=== PATIENT | male | born 1950 | race Caucasian/White ===

== ENCOUNTER 2018-03-20 19:34 | Observation (INO) | payer OTHER, MEDICARE ==
[~2018-03-20] VITALS: Ht 175.3 cm; Wt 90.3 kg
[~2018-03-20 19:34] MED LIST: ATORVASTATIN CA40 MG PO; COREG6.25 MG PO; GLUCOTROL5 MG PO; METFORMIN HCL500 MG PO; NITROGLYCERIN0.4 MG SUBLING; PLAVIX 75 MG TA75 M1 PO; PRILOSEC 20 MG20 MG PO; TYLENOL325 MG PO
[2018-03-20 19:37] VITALS: BP 146/77
[2018-03-20] MEDS ORDERED: ESOMEPRAZOLE MA20 MG PO (19:44)
[2018-03-20 19:53] LABS: ABSOLUTE BASOPHILS 0.1 thou/uL (0.0-0.2); ABSOLUTE EOSINOPHILS 0.4 thou/uL (0.0-0.7); ABSOLUTE LYMPHOCYTES 1.8 thou/uL (0.8-5.3); ABSOLUTE MONOCYTES 0.4 thou/uL (0.0-1.2); ABSOLUTE NEUTROPHILS 4.9 thou/uL (1.6-8.1); BASOPHILS 1.2 %; EOSINOPHILS 5.5 %; HEMATOCRIT 40.5 % (42.0-52.0); HEMOGLOBIN 13.8 gm/dL (14.0-18.0); LYMPHOCYTES 23.7 %; MCH 30.9 pg (26.0-34.0); MCHC 34.1 g/dL (28.0-37.0); MCV 90.7 fL (80.0-100.0); MONOCYTES 5.8 %; MPV 8.5 fl. (7.2-11.1); NUCLEATED RBCS 0 /100WBC; PLATELET COUNT* 197 thou/uL (150-400); POLYS 63.8 %; RBC 4.47 mil/uL (4.50-6.00); RDW-CV 13.6 % (10.5-14.5); WBC 7.7 thou/uL (4.0-11.0)
[2018-03-20 20:07] LABS: PROTIME 10.2 Seconds (9.20-11.50)
[2018-03-20 20:10] LABS: CALCIUM 8.3 mg/dL (8.5-10.1); CREATININE 1.1 mg/dL (0.6-1.3); POTASSIUM 3.8 mmol/L (3.5-5.1)
[2018-03-20 20:20] LABS: ALBUMIN 4.1 g/dL (3.4-5.0); TOTAL BILIRUBIN 0.4 mg/dL (<0.1-1.0)
[2018-03-20 22:17] VITALS: BP 105/57
[2018-03-20 22:25] VITALS: BP 118/60
[2018-03-20] MEDS ORDERED: ASPIR 8181 MG PO (23:10)
[2018-03-21 04:00] VITALS: BP 85/52
[2018-03-21 04:36] VITALS: BP 105/59
[2018-03-21 08:00] VITALS: BP 99/58
[2018-03-21 08:25] LABS: URINE BILIRUBIN NEGATIVE (Negative); URINE BLOOD NEGATIVE (Negative); URINE CLARITY CLEAR; URINE COLOR YELLOW; URINE GLUCOSE-RANDOM NEGATIVE (Negative); URINE KETONES NEGATIVE (Negative); URINE LEUKOCYTES-REFLEX NEGATIVE (Negative); URINE NITRITE-REFLEX NEGATIVE (Negative); URINE PROTEIN NEGATIVE (Negative); URINE UROBILINOGEN 0.2 E.U./dl (0.2-1.0)
[2018-03-21 10:44] VITALS: BP 99/58
--- NOTE | 2018-03-21 11:09 | EKG ---
[place] [address] ELECTROCARDIOGRAM REPORT Name: DONNELL HURTADO Room: [address] ADM IN .R.#: [id number] Admission: 03/20/18 Attend Phys: Nazia Belle MD Discharge: Date of : 46 Report #: [id number] THIS REPORT FOR: //name// [facility] ED Test Date: 2018-03-20 Test Time: 19:39:17 Pat Name: DONNELL HURTADO Department: Room: [facility] Gender: M Exotic Dancer: [place] : 1950 Requested By: Liana Islas Order Number: [id number] MD: oJs Vernon Measurements Intervals [place] Rate: 79 P: 37 TN: 196 QRS: 50 QRSD: 132 T: 44 QT: 392 QTc: 450 Interpretive Statements Sinus rhythm Right bundle branch block ST elevation, consider inferior injury Compared to ECG 07/12/2017 01:09:49 Myocardial infarct finding now present Ventricular premature complex(es) no longer present ST (T wave) deviation still present Electronically Signed On 03-21-2018 11:08:48 CDT by Jos Vernon [email or web address] <ELECTRONICALLY SIGNED> By: Jos Vernon MD, FAC 03/21/18 1108 38 38 Jos Vernon MD, FAC /EPI
[2018-03-21 11:37] VITALS: BP 105/50
--- NOTE | 2018-03-29 12:53 | CON ---
[address] [address] CONSULTATION Name: DONNELL HURTADO Room: [address] John Shepard#: [id number] Admission: 03/20/18 Attend Phys: Nazia Belle MD Discharge: 03/21/18 Date of : 46 Report #: [id number] THIS REPORT FOR: //name// CC: Alex Belle DATE OF SERVICE: 03/21/2018 PRIMARY CARE DOCTOR: Alex Arnold MD [facility]. CHIEF COMPLAINT: Left arm pain. HISTORY OF PRESENT ILLNESS: The patient is a 68-year-old man with a history of coronary artery disease and prior PCI, who presented to the emergency room with left arm ache, which radiated down to his fingertips associated with numbness. He really did not have much in the way of chest discomfort. His symptoms were unrelieved with nitroglycerin at home and then he was given a nitropatch here, became hypotensive and dizzy and lightheaded and again still had really significant relief of his arm pain. At this point this morning, he is asymptomatic for chest pain or arm pain or numbness. He has been doing a lot of upper extremity vigorous activity. He works with wood working as a hobby and had been using his upper extremities more frequently over the last week. He has no exertional symptoms with walking. He denies diaphoresis, orthopnea, PND or palpitations. He presents with a sinus rhythm with right bundle branch block. He was admitted for observation and his cardiac troponin levels were all normal. PAST MEDICAL HISTORY: He has a history of prior PCI in 06/2017 to the diagonal and right coronary artery and then he underwent a repeat cardiac catheterization later and had patency of his stents. He has still been on Plavix. He has GERD, hyperlipidemia. PAST SURGICAL HISTORY: PCI and wrist surgery. SOCIAL HISTORY: He used to smoke. FAMILY HISTORY: Positive for heart disease. HOME MEDICATIONS: Aspirin, Coreg 6.25 mg p.o. b.i.d., cholecalciferol, Plavix 75 mg daily, Nexium 20 mg daily, Glucotrol 10 mg daily, metformin 500 mg 2 p.o. b.i.d. and [place]yl[place] [id number] CONSULTATION Name: DONNELL HURTADO Room: [address] LidiaBrandon#: [id number] Admission: 03/20/18 Attend Phys: Nazia Belle MD Discharge: 03/21/18 Date of : 46 Report #: [id number] REVIEW OF SYSTEMS: GENERAL: No fevers or chills. PULMONARY: No wheezing or cough. CARDIOVASCULAR: Positive arm pain. No chest pain. No edema, no palpitations. NEUROLOGIC: No syncope or seizures. HEMATOLOGIC: No anemia. RENAL: No history of kidney failure. SKIN: No rashes. PHYSICAL EXAMINATION: VITAL SIGNS: Blood pressure is 99/58, pulse 75, respiratory rate is 18. GENERAL: This is a pleasant elderly male, alert, oriented, in no apparent distress. NECK: Supple. No jugular venous distention. CARDIOVASCULAR: Regular. I cannot hear a murmur. LUNGS: Clear to auscultation. ABDOMEN: Soft, nontender. EXTREMITIES: No peripheral edema. LABORATORY DATA: Electrocardiogram demonstrates a sinus rhythm with complete right bundle branch block. Troponin I is 0.06 x 3 sets. Hemoglobin is 13.8, white blood count 7.7, platelet count is 197,000. INR is 1.0. Chest x-ray shows no acute process. IMPRESSION: 1. Arm pain. This seems more musculoskeletal given the fact that he had been working with his upper extremities more vigorously in the last week. The numbness and wrist pain seem more likely to be associated with this type of abnormality. 2. Coronary artery disease. His symptoms could have been construed as angina. He is ruled out for an acute UT given his recatheterization within the last 7 months. I think that he can be evaluated as an outpatient by his usual automatic machines supervisor, Dr. Arnold to see if any further testing is necessary yet, he is asymptomatic morning. His catheterization was in 07/2017 and showed no in-stent restenosis and only moderate disease elsewhere in the target vessels. 3. Hypertension, this is stable. 4. Hyperlipidemia, we will continue with aggressive medical therapy. We will plan on discharging him with Plavix and p.r.n. NSAIDs over the next 5-7 days, and then he will follow up with Dr. Arnold within a month. <ELECTRONICALLY SIGNED> By: Jos Vernon MD, [facility] 03/29/18 1253 [id number] [id number] Vernon MD, FACC /nt
== END 2018-03-21 13:04 | disposition home or self-care (01) ==
LOC: M.ERS 19:34 → M.2W 21:12 → M.TBA-ER 21:12 → M.2W 21:12
PROVIDERS: Emergency Medicine; ADMIT Internal Medicine
DX: R07.9 Chest pain, unspecified (principal); I25.10 Atherosclerotic heart disease of native coronary artery without angina pectoris; I10 Essential (primary) hypertension; E11.9 Type 2 diabetes mellitus without complications; K21.9 Gastro-esophageal reflux disease without esophagitis; E78.5 Hyperlipidemia, unspecified; I21.4 Non-ST elevation (NSTEMI) myocardial infarction; Z95.5 Presence of coronary angioplasty implant and graft; Z72.89 Other problems related to lifestyle; Z98.890 Other specified postprocedural states

== ENCOUNTER 2019-04-23 20:37 | Inpatient (IN) | payer OTHER, MEDICARE ==
[~2019-04-23] VITALS: Ht 175.3 cm; Wt 92.1 kg
[~2019-04-23 20:37] MED LIST changes: +ASPIR 8181 MG PO; +ESOMEPRAZOLE MA20 MG PO
[2019-04-23 20:54] VITALS: BP 148/88
[2019-04-23 21:16] LABS: ABSOLUTE EOSINOPHILS 0.4 thou/uL (0.0-0.7); ABSOLUTE LYMPHOCYTES 1.8 thou/uL (0.8-5.3); ABSOLUTE MONOCYTES 0.5 thou/uL (0.0-1.2); ABSOLUTE NEUTROPHILS 5.1 thou/uL (1.6-8.1); BASOPHILS 0.5 %; EOSINOPHILS 4.5 %; HEMATOCRIT 41.3 % (42.0-52.0); HEMOGLOBIN 14.2 gm/dL (14.0-18.0); LYMPHOCYTES 22.9 %; MCH 30.1 pg (26.0-34.0); MCHC 34.4 g/dL (28.0-37.0); MCV 87.4 fL (80.0-100.0); MONOCYTES 6.8 %; MPV 8.8 fl. (7.2-11.1); NUCLEATED RBCS 0 /100WBC; PLATELET COUNT* 185 thou/uL (150-400); POLYS 65.3 %; RBC 4.72 mil/uL (4.50-6.00); RDW-CV 14.5 % (10.5-14.5); WBC 7.8 thou/uL (4.0-11.0)
[2019-04-23 21:22] LABS: CALCIUM 8.9 mg/dL (8.5-10.1); CREATININE 1.2 mg/dL (0.6-1.3); POTASSIUM 3.7 mmol/L (3.5-5.1)
[2019-04-23 21:27] LABS: ALBUMIN 3.9 g/dL (3.4-5.0); TOTAL BILIRUBIN 0.5 mg/dL (<0.1-1.0); TOTAL PROTEIN 7.3 g/dL (6.4-8.2)
[2019-04-23 22:47] LABS: URINE BILIRUBIN NEGATIVE (Negative); URINE BLOOD 2+ (Negative); URINE CLARITY CLEAR; URINE COLOR YELLOW; URINE GLUCOSE-RANDOM 2+ (Negative); URINE KETONES TRACE (Negative); URINE LEUKOCYTES-REFLEX NEGATIVE (Negative); URINE NITRITE-REFLEX NEGATIVE (Negative); URINE PROTEIN NEGATIVE (Negative); URINE SPECIFIC GRAVITY >= 1.030 (1.005-1.030); URINE UROBILINOGEN 0.2 E.U./dl (0.2-1.0)
[2019-04-23 22:50] VITALS: BP 139/76
[2019-04-23 23:00] VITALS: BP 154/89
--- NOTE | 2019-04-23 23:00 | NUR ---
PT ADMITTED TO FLOOR ACCOMPANIED BY ER STAFF WITH BELONGINGS. AOX4. UP WITH STEADY GAIT. PT STATES LOW ABD PAIN 1/10 AT PRESENT AFTER MEDS IN ER. STATES HE IS HUNGRY, SNACK TO BE GIVEN BEFORE NPO AT MIDNIGHT. ASSESSMENT PERFORMED AND HISTORY OBTAINED, SEE ADMIT NOTES. RAC IVF PLACED ON PUMP FOR INFUSION. PT INSTRUCTED NURSING STAFF WILL STRAIN URINE, VERBALIZES UNDERSTANDING. WILL CONTINUE TO MONITOR AND PROVIDE CARES NEEDED.
[2019-04-23 23:11] LABS: CASTS None Seen /LPF (None Seen); SQUAMOUS 4-10 Moderate /LPF (0-3)
[2019-04-23 23:12] LABS: BACTERIA-REFLEX 1-9 Few /HPF (None Seen); CRYSTALS None Seen /LPF (None Seen); URINE WBC-REFLEX 0-5 Rare /HPF (0-5)
--- NOTE | 2019-04-24 05:28 | NUR ---
PT SLEPT WELL AFTER SETTLING IN FROM ADMISSION. UP AD RC TO BATHROOM TO VOID YELLOW URINE, STRAINED WITH NO STONES FOUND. IV PAIN AND NAUSEA MED GIVEN ONCE THIS SHIFT FOR MILD ABD PAIN RADIATING TO L FLANK. NO LABS THIS MORNING. HAS BEEN NPO SINCE MIDNIGHT ORDERED. UROLOGY TO SEE PT TODAY. ABLE TO USE CALL LITE AND MAKE NEEDS KNOWN. CALL LITE IN EASY REACH.
[2019-04-24 07:49] VITALS: BP 105/59
--- NOTE | 2019-04-24 13:04 | NUR ---
This RN instructor agrees with the assessment of SN Yimi for 04/24/19 at 1053.
[2019-04-24 14:14] VITALS: BP 105/59
[2019-04-24 14:50] VITALS: BP 123/68
--- NOTE | 2019-04-24 15:53 | NUR ---
ASSESSMENT COMPLETE. PT ALERT AND ORIENTED X4. PT DENIES NEED FOR PAIN MEDICATION SINCE SHIFT CHANGE THIS AM. PT HAS IV FLUIDS INFUSING. PT IS UP AD RC. STRAIN ALL URINE. PT LEFT FOR PROCEDURE AT 1435, CONSENTS SIGNED AND PRE-OP CHECKLIST COMPLETED. SEE ASSESSMENT AND VITALS FOR OTHER DETAILS. CALL LIGHT WITHIN REACH, WILL CONTINUE PLAN OF CARE
--- NOTE | 2019-04-24 17:25 | EKG ---
[place] [address] ELECTROCARDIOGRAM REPORT Name: GENESISDONNELL Ricketts Room: [address] ADM IN ..#: [id number] Admission: 04/23/19 Attend Phys: Fernando Sykes MD Discharge: Date of : 46 Report #: [id number] THIS REPORT FOR: //name// [facility] Test Date: 2019-04-24 Test Time: 10:23:58 Pat Name: DONNELL HURTADO Department: Room: [address] Gender: M Life Skills Trainer: : 1950 Requested By: Héctor Bryant Order Number: [id number] Oralia MD: Cory Robb Measurements Intervals [place] Rate: 79 P: 48 VT: 181 QRS: 63 QRSD: 131 T: 22 QT: 388 QTc: 445 Interpretive Statements Sinus rhythm Right bundle branch block Compared to ECG 03/20/2018 19:39:17 Myocardial infarct finding no longer present ST (T wave) deviation still present Electronically Signed On 04-24-2019 17:25:14 CDT by Cory Robb [email or web address] <ELECTRONICALLY SIGNED> By: Cory Robb MD, [facility] 04/24/19 1725 1023 1023 Cory Robb MD, [facility] /EPI
[2019-04-24 18:35] VITALS: BP 141/69
--- NOTE | 2019-04-24 18:36 | NUR ---
PT BACK FROM SURGERY AT 1800. PT IS ALERT AND ORIENTED X4. DENIES PAIN. SMALL AMOUNT OF BLOOD DRAINING FROM URETHRA. PT ABLE TO URINATE. PT TOLERATING DIET. PT IS ON ROOM AIR AND VSS. CALL LIGHT WITHIN REACH, WILL CONTINUE PLAN OF CARE
[2019-04-24 20:36] VITALS: BP 125/69
[2019-04-25 00:14] VITALS: BP 128/68
[2019-04-25 04:27] VITALS: BP 122/68
--- NOTE | 2019-04-25 05:43 | NUR ---
PATIENT WAS ABLE TO SLEEP THOUGH THE SHIFT. HE REPORTED NO PAIN OR NAUSEA AND IS TOLERATING A CLEAR LIQUIDS WELL. WAS PUT ON 3L OXYGEN AND IS SAT 97% WITH 3L. NO WORSENING OF CONDITIONS WILL CONTINUE TO MONITOR.
[2019-04-25 08:35] VITALS: BP 120/70
[2019-04-25] MEDS ORDERED: FLOMAX0.4 MG PO (10:59)
[2019-04-25] MEDS ORDERED: HYDROCODON-ACE1 EAC7 PO (10:59)
[2019-04-25] MEDS ORDERED: OXYBUTYNIN 5 MG5 M2 PO (10:59)
[2019-04-25] MEDS ORDERED: CIPRO500 MG PO (11:03)
[2019-04-25] MEDS ORDERED: PHENAZOPYRIDIN200 M2 PO (11:03)
--- NOTE | 2019-04-25 12:48 | OP ---
[address] [address] OPERATIVE REPORT Name: DONNELL HURTADO Room: [address] IN ..#: [id number] Admission: 04/23/19 Attend Phys: Fernando Sykes MD Discharge: Date of : 46 Report #: [id number] THIS REPORT FOR: //name// CC: Alex Sykes DATE OF SERVICE: 04/24/2019 PREOPERATIVE DIAGNOSIS: Left nephrolithiasis. POSTOPERATIVE DIAGNOSIS: Left nephrolithiasis. PROCEDURE PERFORMED: 1. Cystoscopy. 2. Left retrograde pyelogram. 3. Left ureteroscopy with laser lithotripsy and stone basket extraction. 4. Left ureteral stent placement. STAFF: Dr. Héctor Bryant. COMPLICATIONS: None. DRAINS: One. A 6 x 26 left ureteral stent. SPECIMENS: Left ureteral stone. ESTIMATED BLOOD LOSS: 0 mL. INDICATIONS FOR PROCEDURE: The patient is a 69-year-old gentleman who presented to the [facility] ER with left-sided flank pain. A CT without contrast was performed, which demonstrated a 9 mm left UPJ stone with proximal hydronephrosis. After thorough discussion, the patient was willing to proceed with ureteroscopy. DESCRIPTION OF PROCEDURE: On 04/24/2019, after consent was obtained, the patient was taken to the operating room and placed in supine position. He was then placed under general anesthesia. He received preoperative IV Cipro for antibiotic coverage. He was then placed in dorsal lithotomy and his genitals were prepped and draped in normal sterile fashion. Next, we began the procedure by inserting the 22.5-Malaysian rigid cystoscope transurethrally without difficulty. Once in the bladder, identified the left ureteral orifice. This was cannulated with a sensor wire, which was passed in the upper pole under fluoroscopic guidance. I then withdrew the cystoscope and inserted a dual lumen catheter over the sensor wire. Retrograde pyelogram was performed, which demonstrated a stone at the level of the UPJ. I then withdrew the dual lumen catheter. I selected an 11-13-45 cm access sheath [place] [address] OPERATIVE REPORT Name: DONNELL HURTADO Room: [address] IN [facility].#: [id number] Admission: 04/23/19 Attend Phys: Fernando Sykes MD Discharge: Date of : 46 Report #: [id number] level of the proximal ureter without resistance. A flexible ureteroscope was then inserted. At this point, the stone had floated proximally into the upper pole. I used a 272 micron laser fiber to break this up into multiple smaller fragments. A 1.9 zero-tip basket was then utilized to grasp each of the stone fragments and pulled these out of the access sheath without difficulty. Following this, there was no evidence of any further stone burden. I passed the sensor wire into the upper pole through the ureteroscope and the access sheath visualizing the entire ureter, which was free of any injury and/or stone burden. At this point, I backloaded the cystoscope over my sensor wire. I selected a 6 x 26 stent, which was passed up the upper pole under fluoroscopic guidance, had a good coil in the urinary bladder under direct visual guidance. The patient's bladder was emptied was awakened from anesthesia. <ELECTRONICALLY SIGNED> By: Héctor Bryant MD 04/25/19 1248 1627 [id number] Bryant MD /nt
[2019-04-25 16:01] VITALS: BP 120/70
--- NOTE | 2019-04-25 17:59 | NUR ---
1700 PATIENT A&OX 4. NO SIGNS OF DISTRESS OBSERVED. ALL SAFETY MEASURES MAINTAINED. PATIENT DENIED FURTHER NEEDS. IV REMOVED. PATIENT DECLINED 1700 MEDICATIONS AND INSULIN DUE TO PLANS TO EAT DINNER AT HOME. PATIENT AMBULATED WITH TO [facility].
== END 2019-04-25 18:51 | disposition home or self-care (01) | DRG 661 ==
LOC: M.ERS 20:37 → M.TBA-ER 22:29 → M.ORTHSURG 22:29
PROVIDERS: Emergency Medicine; ADMIT Family Medicine
PROC: 0TC78ZZ Extirpation of Matter from Left Ureter, Via Natural or Artificial Opening Endoscopic (ICD-10-PCS; principal; 2019-04-24)
PROC: 0T778DZ Dilation of Left Ureter with Intraluminal Device, Via Natural or Artificial Opening Endoscopic (ICD-10-PCS; principal; 2019-04-24)
PROC: BT1F1ZZ Fluoroscopy of Left Kidney, Ureter and Bladder using Low Osmolar Contrast (ICD-10-PCS; principal; 2019-04-24)
DX: N13.2 Hydronephrosis with renal and ureteral calculous obstruction (principal); E11.9 Type 2 diabetes mellitus without complications; I25.10 Atherosclerotic heart disease of native coronary artery without angina pectoris; Z79.82 Long term (current) use of aspirin; Z79.899 Other long term (current) drug therapy

== ENCOUNTER → 2019-08-27 | Outpatient (CLI) | payer BC, MEDICARE ==
[~2019-08-27] MED LIST changes: +CIPRO500 MG PO; +FLOMAX0.4 MG PO; +HYDROCODON-ACE1 EAC7 PO; +OXYBUTYNIN 5 MG5 M2 PO; +PHENAZOPYRIDIN200 M2 PO
--- NOTE | 2019-08-27 16:23 | EXE ---
[place] [address] STRESS ECHOCARDIOGRAM Name: DONNELL HURTADO Room: [facility]#: [id number] Admission: 08/27/19 Attend Phys: Alex Arnold MD Discharge: Date of : 46 Date of Service: 08/27/19 1622 Report #: [id number] THIS REPORT FOR: //name// APPROVED REPORT Study performed: 08/27/2019 15:13:06 Exam: Stress Echocardiogram Indication: CAD Patient Location: Out-Patient Stress Nurse: Zenobia Moody RN Supervising Physician: Alex Arnold MD Ht: 5 ft 9 in HR: 83 bpm BP: 138/81 mmHg Medical History Medical History: CAD , PA, PCI Cardiac Risk Factors: Hyperlipidemia, HTN, DM, Tobacco History (Former) Procedure The patient underwent an Exercise Stress Test using the Garfield Protocol. Blood pressure, heart rate, and EKG were monitored. An Echocardiogram was performed by central sterile technician in four stages in quad fashion. At peak stress, four selected images were obtained and placed side by side with resting images for comparison. Stress Test Details Stress Test: Exercise stress testing was performed using a Garfield protocol. HR Resting HR: 83 bpm Max Heart Rate (APMHR): 149 bpm Max HR Achieved: 145 bpm Target HR (85% APMHR): 126 bpm % of APMHR: 97 Recovery HR: 97 bpm HR response to stress: Normal HR response to stress BP Resting BP: 138/81 mmHg Max BP: 190/102 mmHg Recovery BP: 163/92 mmHg BP response to stress: Normal blood pressure response [place] [address] STRESS ECHOCARDIOGRAM Name: DONNELL HURTADO Room: [facility]#: [id number] Admission: 08/27/19 Attend Phys: Alex Arnold MD Discharge: Date of : 46 Date of Service: 08/27/19 1622 Report #: [id number] Resting ECG: Sinus Rhythm, RBBB Stress ECG: Sinus Rhythm, RBBB ST Change: Normal Maximum ST Deviation: 0 mm Arrhythmia: None Recovery ECG: Sinus Rhythm, RBBB Recovery ST Change: Normal Recovery ST Deviation: 0 mm Recovery Arrhythmia: None Clinical Reason for Termination: Completed protocol Stress Symptoms: Chest pressue/tightness Exercise duration: 5 min 20 sec Highest Stage Achieved: Stage 3: 3.4 mph at 14% grade. Exercise capacity: 7.05 METs Pre-Stress Echo The resting Echocardiogram showed normal left ventricular contractility with an estimated Ejection Fraction of about 60-65%. Post-Stress Echo The stress Echocardiogram showed normal left ventricular contractility with an estimated Ejection Fraction of about >70%. Compared to rest, there were no stress-induced wall motion abnormalities. Conclusion Clinical Response: Equivocal Exercise Capacity: Below Average Stress ECG Response: Non-ischemic Stress Echo Images: Non-ischemic low risk stress echo for predicting future cardiac events Other Information Study Quality: Good <Conclusion> low risk stress echo for predicting future cardiac events <ELECTRONICALLY SIGNED> By: Alex Arnold MD, [facility] 08/27/19 162 21 21 Alex Arnold MD, FACC /INF
== END ==
LOC: M.CRD 08-20 15:00
DX: I25.118 Atherosclerotic heart disease of native coronary artery with other forms of angina pectoris (principal); I10 Essential (primary) hypertension; E78.5 Hyperlipidemia, unspecified; E11.9 Type 2 diabetes mellitus without complications; I25.2 Old myocardial infarction; Z87.891 Personal history of nicotine dependence

== ENCOUNTER → 2020-02-14 | Outpatient (CLI) | payer BC, MEDICARE | END | disposition home or self-care (01) | LOC: M.MRI 11:20 | PROVIDERS: ATTEND Internal Medicine | DX: M19.011 Primary osteoarthritis, right shoulder (principal); M75.111 Incomplete rotator cuff tear or rupture of right shoulder, not specified as traumatic; M77.9 Enthesopathy, unspecified ==

== ENCOUNTER 2020-07-23 14:36 | Inpatient (IN) | payer MEDICARE ==
[~2020-07-23] VITALS: Ht 175.3 cm; Wt 89.8 kg
[2020-07-23] VITALS (21 sets, daily range): BP systolic 103–183; BP diastolic 59–139
[2020-07-23 14:55] LABS: ABSOLUTE BASOPHILS 0.1 thou/uL (0.0-0.2); ABSOLUTE EOSINOPHILS 0.3 thou/uL (0.0-0.7); ABSOLUTE LYMPHOCYTES 2.6 thou/uL (0.8-5.3); ABSOLUTE MONOCYTES 0.5 thou/uL (0.0-1.2); ABSOLUTE NEUTROPHILS 5.5 thou/uL (1.6-8.1); BASOPHILS 0.9 %; EOSINOPHILS 3.5 %; HEMATOCRIT 45.2 % (42.0-52.0); HEMOGLOBIN 15.4 gm/dL (14.0-18.0); LYMPHOCYTES 28.6 %; MCH 30.6 pg (26.0-34.0); MCV 90.1 fL (80.0-100.0); MONOCYTES 5.3 %; MPV 8.4 fl. (7.2-11.1); NUCLEATED RBCS 0 /100WBC; PLATELET COUNT* 174 thou/uL (150-400); POLYS 61.7 %; RBC 5.02 mil/uL (4.50-6.00); RDW-CV 13.9 % (10.5-14.5)
[2020-07-23 15:04] LABS: ANION GAP 9 mmol/L (7-16); BUN 16 mg/dL (7-18); CALCIUM 9.6 mg/dL (8.5-10.1); CHLORIDE 99 mmol/L (98-107); CO2 31 mmol/L (21-32); CREATININE 1.2 mg/dL (0.6-1.3); GLUCOSE 217 mg/dL (70-99); POTASSIUM 3.9 mmol/L (3.5-5.1); SODIUM 139 mmol/L (136-145)
[2020-07-23 15:08] LABS: ALBUMIN 4.1 g/dL (3.4-5.0); ALKALINE PHOSPHATASE 51 U/L (46-116); APTT 24.7 Seconds (25.0-31.3); CHOLESTEROL 151 mg/dL (<200); HDL CHOLESTEROL 53 mg/dL (>40); INR 1.1; LDL CHOLESTEROL 67 mg/dL (<100); MAGNESIUM 1.8 mg/dL (1.8-2.4); PROTIME 11.2 Seconds (9.20-11.50); SGOT 26 U/L (15-37); SGPT 35 U/L (30-65); TC:HDL 2.8 Ratio (Not establshd); TOTAL BILIRUBIN 0.7 mg/dL (<0.1-1.0); TOTAL PROTEIN 7.6 g/dL (6.4-8.2); TRIGLYCERIDE 157 mg/dL (<150); VLDL 31 mg/dL (<40)
[2020-07-23 15:11] LABS: SERUM ASSESSMENT Clear
--- NOTE | 2020-07-23 18:27 | EKG ---
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: MARBIN : 1950 Requested By: Andrew Cespedes Order Number: [id number] Reading MD: Jcarlos Andrade Measurements Intervals [place] Rate: 72 P: 39 MN: 180 QRS: 81 QRSD: 137 T: 32 QT: 417 QTc: 457 Interpretive Statements Sinus rhythm Right bundle branch block Inferior infarct, acute ST elevation, consider anterolateral injury Compared to ECG 07/23/2020 14:42:55 Left posterior fascicular block no longer present Myocardial infarct finding still present ST (T wave) deviation still present Electronically Signed On 07-23-2020 18:27:42 COORDINATOR SKILL TRAINING PROGRAM by Jcarlos Andrade [email or web address] <ELECTRONICALLY SIGNED> By: Jessenia Andrade MD, FACC 07/23/20 1827 56 56 Jessenia Andrade MD, [facility] /EPI
--- NOTE | 2020-07-23 18:27 | EKG ---
[place] [address] ELECTROCARDIOGRAM REPORT Name: GENESISDONNELL Ricketts Room: [address] IN ..#: [id number] Admission: 07/23/20 Attend Phys: Vincenzo Shah Discharge: Date of : 46 Date of Service: 07/23/20 1442 Report #: [id number] THIS REPORT FOR: //name// [facility] ED Test Date: 2020-07-23 Test Time: 14:42:55 Pat Name: DONNELL HURTADO Department: Room: [facility] Gender: M Lead Javascript Engineer: : 1950 Requested By: Earl Glez Order Number: [id number] MD: Jcarlos Andrade Measurements Intervals [place] Rate: 71 P: 57 PA: 199 QRS: 101 QRSD: 132 T: 76 QT: 424 QTc: 461 Interpretive Statements Sinus rhythm Probable left atrial enlargement RBBB and LPFB Inferior infarct, acute (RCA) Probable posterior infarct, acute ST elevation, consider anterior injury Lateral leads are also involved Probable RV involvement, suggest recording right precordial leads Compared to ECG 04/24/2019 10:23:58 Left posterior fascicular block now present Myocardial infarct finding now present ST (T wave) deviation now present Electronically Signed On 07-23-2020 18:27:12 LINE CREWMAN by Jcarlos Andrade [email or web address] <ELECTRONICALLY SIGNED> By: Jessenia Andrade MD, [facility] 07/23/20 1827 1442 1442 Jessenia Andrade MD, [facility] /EPI
[2020-07-24] VITALS (14 sets, daily range): BP systolic 89–147; BP diastolic 2–76
[2020-07-24 05:09] LABS: HEMOGLOBIN 13.8 gm/dL (14.0-18.0); MCH 30.2 pg (26.0-34.0); MCHC 33.8 g/dL (28.0-37.0); MCV 89.4 fL (80.0-100.0); MPV 8.4 fl. (7.2-11.1); RBC 4.58 mil/uL (4.50-6.00); RDW-CV 13.5 % (10.5-14.5); WBC 8.6 thou/uL (4.0-11.0)
[2020-07-24 05:30] LABS: ALBUMIN 3.3 g/dL (3.4-5.0); CREATININE 0.9 mg/dL (0.6-1.3); POTASSIUM 3.7 mmol/L (3.5-5.1); TOTAL BILIRUBIN 0.6 mg/dL (<0.1-1.0)
--- NOTE | 2020-07-24 15:07 | CARD ---
[address] [address] CARDIAC CATH REPORT Name: DONNELL HURTADO Room: [address] IN ..#: [id number] Admission: 07/23/20 Attend Phys: Andrew Cespedes MD, Discharge: Date of : 46 Report #: [id number] THIS REPORT FOR: cc: Micheline Laurent MD, Lin W. MD ~ Andrew Cespedes MD [facility] APPROVED REPORT Study performed: 07/23/2020 15:00:29 Patient Details Patient Status: ED Room #: The patient is a 70 year-old male Event Personnel Andrew Cespedes Delivery Department Supervisor, Alexandria Guzman RN RN, Harsha Dickey Scrub, Maxine Ramirez RTR Monitor Procedures Performed Art Access - R femoral artery, Left Heart Cath w/or w/o Coronaries , LHC PRATIMA w/Atherectomy Single RCA , Hemostasis w/ Angioseal; inferior wall ST segment elevation myocardial infarction Indication STEMI Risk Factors Obesity, Hypercholesterolemia, Hypertension Previous Procedures/Diagnoses Previous PCI Admission/Lab Medications/Medications given during procedure Lidocaine Subcut 14 ml, Oxygen Nasal cannula 2 l per min, 0.9% Sodium Chloride IV 75 ml per hr, Angiomax IV 13.5 ml, Angiomax Drip IV 31.29 ml per hr, Aspirin PO 162 mg, Effient PO 60 mg Procedure Narrative The patient was brought emergently to the Cardiac Catheterization Laboratory and was prepped and draped in a sterile manner. The right femoral was infiltrated with 2% Lidocaine subcutaneous anesthesia. A [place] 6 FR sheath was inserted into the right femoral artery. Coronary angiography was performed using coronary diagnostic [address] [address] CARDIAC CATH REPORT Name: DONNELL HURTADO Room: [address]#: [id number] Admission: 07/23/20 Attend Phys: Andrew Cespedes MD, Discharge: Date of : 48 Report #: [id number] catheters. The right coronary system was accessed and visualized with a Diagnostic 6 Fr JR 4 catheter. The left coronary system was accessed and visualized with a Diagnostic 6 Fr JL 4 catheter. The left ventricle was accessed and visualized with a Diagnostic 6 Fr Pigtail catheter. Left ventricular/Aortic Valve gradient assessed via catheter pullback. Pre-demployment femoral angiogram was performed . Closure device was deployed with a Fr Angioseal STS 6Fr. The patient tolerated the procedure well and there were no complications associated with the procedure. There was no hematoma. Intraoperative Conscious Sedation No sedation was given. Case start time was 15:13 and case end was 16:08. Fluoro Time: 20.3 minutes Dose: DAP 415806 cGycm2 2352 mGy Contrast Type and Amount: Visipaque 335 ml Coronary Angiography The patient's coronary anatomy is right dominant. Diagnostic Cath Left Main 0% narrowing LAD 80% mid LAD stenosis at the takeoff of a prominent diagonal branch Circumflex 40% mid vessel narrowing Right Coronary 80% proximal stenosis with 95% mid vessel stenosis and 95% distal stenosis with CHRIS I flow to the distal vessel; there was prominent intraluminal thrombus Left Ventriculography Left Ventriculography was not performed. Hemodynamics The aortic pressure is 167/75 mmHg with a mean of 109 mmHg. The left ventricular pressure is 145/2 mmHg with a mean of mmHg. The left ventricular end diastolic pressure is 15 mmHg. There was no gradient across the aortic valve upon pullback. PCI Technique Lesion Anticoagulation was achieved with Angiomax Drip. Patient was preloaded with Angiomax IV 13.5 ml. Percutaneous coronary intervention was performed on the mid right coronary artery. The lesion stenosis prior to intervention was 95% with CHRIS 1 flow. A 6F 3DRC Guide Catheter was used to engage the right ostium. A IG: [place] [address] CARDIAC CATH REPORT Name: DONNELL HURTADO Room: [address] IN [facility]#: [id number] Admission: 07/23/20 Attend Phys: Andrew Cespedes MD, Discharge: Date of : 48 Report #: [id number] 190cm Interventional Guidewire was used to cross the lesion. BALLOON DILATION A Balloon catheter Euphora SC 2.25x12 was inserted and inflated up to 14.00atm for 8seconds. A balloon catheter NC Trek 2.5 x 12mm was inserted and inflated up to 17 CASSIA for 8 seconds and 18 CASSIA for 7 seconds. A scoring balloon catheter Angiosculpt 2.5 x 10mm was inserted and inflated up to 14 CASSIA for 11 seconds, 14 CASSIA for 7 seconds, and 14 CASSIA for 8 seconds. STENT DEPLOYMENT A drug-eluting stent Dickson RX Stent 2.21c65on was inserted and inflated up to 16.00atm for 8seconds. Additional Inflation: 16.00atm for 8seconds. Final angiography reveals 0 % stenosis with CHRIS 3 flow. COMMENTS The PCI was second complex by virtue of the marked calcification throughout the right coronary artery requiring atherotomy/atherectomy as well as stenting of the proximal mid and distal right coronary artery to achieve a satisfactory angiographic result PCI Technique Lesion 2 Percutaneous Coronary Intervention was performed on the proximal right coronary artery. Patient was preloaded with Angiomax IV 13.5 ml. The lesion stenosis prior to intervention was 80% with CHRIS 1 flow. A 6F 3DRC Guide Catheter was used to engage the right ostium. A IG: [place] 190cm Interventional Guidewire was used to cross the lesion. Balloon Dilation A Balloon catheter Euphora SC 2.25x12 was inserted and inflated up to 18.00atm for 8seconds. A balloon catheter NC Trek RX 2.5x 12 was inserted and inflated up to 20 CASSIA for 12 seconds. A scoring balloon catheter Angiosculpt PTCA 2.5 x 10 mm was inserted and inflated up to 16 CASSIA for 9 seconds, 18 CASSIA for 9 seconds, and 22 CASSIA for 9 seconds. A balloon catheter NC Trek 3.25 x 12mm was inserted and inflated up to 15 CASSIA for 4 seconds and 17 CASSIA for 9 seconds. Stent Deployment A drug-eluting stent Dickson RX Stent 3.0X15mm was inserted and inflated up to 16.00atm for 8seconds. Additional Inflation: 20.00atm [place] [address] CARDIAC CATH REPORT Name: DONNELL HURTADO Room: [address] IN ..#: [id number] Admission: 07/23/20 Attend Phys: Andrew Cespedes MD, Discharge: Date of : 48 Report #: [id number] for 8seconds. Additional Inflation: 15.00atm for 6seconds. Final angiography reveals 10 % stenosis with CHRIS 3 flow. PCI Technique Lesion 3 Percutaneous Coronary Intervention was performed on the distal right coronary artery. Patient was preloaded with Angiomax IV 13.5 ml. The lesion stenosis prior to intervention was 95% with CHRIS 1 flow. A 6F 3DRC Guide Catheter was used to engage the right ostium. A IG: [place] 190cm Interventional Guidewire was used to cross the lesion. Balloon Dilation A Balloon catheter Euphora SC 2.25x12 was inserted and inflated up to 10atm for 3seconds. Additional Inflation: 14atm for 7seconds. A balloon catheter NC Trek RX 2.5x 12 was inserted and inflated up to 12 CASSIA for 9 seconds. A scoring balloon catheter Angiosculpt PTCA 2.0 x 6mm was inserted and inflated up to 12 CASSIA for 10 seconds, 15 CASSIA for 10 seconds, 17 CASSIA for 7 seconds. A scoring balloon catheter Angiosculpt PTCA 2.5 x 10mm was inserted and inflated up to 6 CASSIA for 5 seconds and 8 CASSIA for 6 seconds. Stent Deployment A drug-eluting stent [place] RX Stent 2.0X8mm was inserted and inflated up to 12.00atm for 6seconds. Additional Inflation: 15.00atm for 7seconds. Additional Inflation: 16.00atm for 4seconds. Final angiography reveals 10 % stenosis with CHRIS 3 flow. Conclusion 1. Acute inferior wall ST segment elevation myocardial infarction 2. Significant multivessel coronary artery disease characterized by the following: A 80% proximal 95% mid and 95% distal right coronary stenosis with CHRIS I flow to the distal vessel B 80% mid LAD narrowing C 40% mid circumflex narrowing 2. Mild elevation of left ventricular end diastolic pressure at rest [address] [place] [address] CARDIAC CATH REPORT Name: DONNELL HURTADO Room: [address] IN [facility]#: [id number] Admission: 07/23/20 Attend Phys: Andrew Cespedes MD, Discharge: Date of : 48 Report #: [id number] 3. Successful PCI with atherotomy/atherectomy and stenting of the distal mid and proximal right coronary artery with 10, 0, and 10% residual narrowings and CHRIS-3 flow to the distal vessel without residual thrombus Recommendations Cardiac Risk Reduction Program Aggressive Medical Therapy Medications Administered Aspirin (any) Prasugrel Diagnostic Cath Approved by: Andrew Cespedes MD Date/Time: 07/24/2020 15:05:15 <ELECTRONICALLY SIGNED> By: Andrew Cespedes MD, FACC 07/24/20 1507 1507 [id number] Cespedes MD, FACC /INF
--- NOTE | 2020-07-24 16:59 | 2DMMODE ---
[place] [address] 2 D/M-MODE ECHOCARDIOGRAM Name: DONNELL HURTADO Room: [address] IN [facility]#: [id number] Admission: 07/23/20 Attend Phys: Vincenzo Shah Discharge: Date of : 46 Date of Service: 07/24/20 1659 Report #: [id number] THIS REPORT FOR: cc: Micheline Laurent MD, Lin W. MD Holkins, John M. MD [facility] ~ APPROVED REPORT Study performed: 07/24/2020 09:15:33 EXAM: Comprehensive 2D, Doppler, and color-flow Echocardiogram Patient Location: In-Patient Room #: 006 Status: routine BSA: 2.06 HR: 78 bpm BP: 108/62 mmHg Rhythm: NSR Other Information Study Quality: Good Indications Acute AL 2D Dimensions IVSd: 9.92 (7-11mm) LVOT Diam: 20.75 (18-24mm) LVDd: 43.86 mm PWd: 9.02 (7-11mm) Ascending Ao: 26.57 (22-36mm) LVDs: 24.24 (25-40mm) Aortic Root: 30.06 mm Volumes Left Atrial Volume (Systole) LA ESV Index: 19.00 mL/m2 Aortic Valve AoV Peak Cristian.: 1.45 m/s AO Peak Gr.: 8.46 mmHg LVOT Max P.07 mmHg AO Mean Gr.: 4.22 mmHg LVOT Mean P.25 mmHg LVOT Max V: 1.33 m/s AO V2 VTI: 25.18 cm LVOT Mean V: 0.81 m/s ANTONIO (VTI): 3.29 cm2 LVOT V1 VTI: 24.51 [place] [address] 2 D/M-MODE ECHOCARDIOGRAM Name: DONNELL HURTADO Room: [address] IN ..#: [id number] Admission: 07/23/20 Attend Phys: Vincenzo Shah Discharge: Date of : 46 Date of Service: 07/24/20 1659 Report #: [id number] Mitral Valve E/A Ratio: 1.23 MV Decel. Time: 196.83 ms MV E Max Cristian.: 0.97 m/s MV PHT: 57.08 ms MVA (PHT): 3.85 cm2 TDI E/Lateral E': 12.13 E/Medial E': 13.86 Medial E' Cristian.: 0.07 m/s Lateral E' Cristian.: 0.08 m/s Pulmonary Valve PV Peak Cristian.: 1.04 m/s PV Peak Gr.: 4.34 mmHg Tricuspid Valve RAP Estimate: 5.00 mmHg TR Peak Gr.: 28.01 mmHg RVSP: 33.00 mmHg PA Pressure: 33.00 mmHg Left Ventricle The left ventricle is normal size. There is normal LV segmental wall motion. There is normal left ventricular wall thickness. Left ventricular systolic function is normal. The left ventricular ejection fraction is within the normal range. LVEF is 60-65%. The left ventricular diastolic function is normal. Right Ventricle The right ventricle is normal size. The right ventricular systolic function is normal. Atria The left atrium size is normal. The right atrium size is normal. Aortic Valve The aortic valve is normal in structure. No aortic regurgitation is present. There is no aortic valvular stenosis. Mitral Valve The mitral valve is normal in structure. Trace mitral regurgitation. No evidence of mitral valve stenosis. Tricuspid Valve The tricuspid valve is normal in structure. [place] [address] 2 D/M-MODE ECHOCARDIOGRAM Name: DONNELL HURTADO Room: [address]#: [id number] Admission: 07/23/20 Attend Phys: Vincenzo Shah Discharge: Date of : 46 Date of Service: 07/24/20 1659 Report #: [id number] Pulmonic Valve The pulmonary valve is normal in structure. Trace pulmonic regurgitation. Great Vessels The aortic root is normal in size. IVC is normal in size and collapses >50% with inspiration. Pericardium There is no pericardial effusion. <Conclusion> The left ventricle is normal size. There is normal left ventricular wall thickness. Left ventricular systolic function is normal. The left ventricular ejection fraction is within the normal range. LVEF is 60-65%. The left ventricular diastolic function is normal. The right ventricle is normal size. The left atrium size is normal. The mitral valve is normal in structure. The tricuspid valve is normal in structure. IVC is normal in size and collapses >50% with inspiration. There is no pericardial effusion. There is normal LV segmental wall motion. The aortic valve is normal in structure. <ELECTRONICALLY SIGNED> By: Andrew Cespedes MD, FACC 07/24/201658 58 58 Andrew Cespedes MD, FACC /INF
--- NOTE | 2020-07-24 17:30 | EKG ---
[place] [address] ELECTROCARDIOGRAM REPORT Name: DONNELL HURTADO Room: [address] IN ..#: [id number] Admission: 07/23/20 Attend Phys: Vincenzo Shah Discharge: Date of : 46 Date of Service: 07/24/2003 Report #: [id number] THIS REPORT FOR: //name// [facility] Test Date: 2020-07-24 Test Time: 08:03:39 Pat Name: DONNELL HURTADO Department: Room: [facility] Gender: M Lean Manufacturing Engineer: : 1950 Requested By: Andrew Cespedes Order Number: [id number] Reading MD: Andrew Cespedes Measurements Intervals [place] Rate: 69 P: 8 NM: 191 QRS: -52 QRSD: 134 T: 21 QT: 404 QTc: 433 Interpretive Statements Sinus rhythm Right bundle branch block Probable inferior infarct, acute Lateral leads are also involved Compared to ECG 07/23/2020 16:57:13 ST (T wave) deviation no longer present Myocardial infarct finding still present Electronically Signed On 07-24-2020 17:30:02 HIGH SCHOOL AGRICULTURE TEACHER by Andrew Cespedes [email or web address] <ELECTRONICALLY SIGNED> By: Andrew Cespedes MD, [facility] 07/24/20 1730 0803 [id number] Andrew Cespedes MD, [facility] /EPI
[2020-07-25 04:00] VITALS: BP 109/53
[2020-07-25] MEDS ORDERED: EFFIENT10 MG PO (08:34)
[2020-07-25 08:35] VITALS: BP 98/55
[2020-07-25 10:58] VITALS: BP 98/55
[2020-07-25 11:16] VITALS: BP 105/61
[2020-07-25 12:01] VITALS: BP 98/55
== END 2020-07-25 11:40 | disposition home or self-care (01) | DRG 246 ==
LOC: M.ERS 14:36 → M.TBA-CV 15:04 → M.CL 15:04 → M.ERS 15:13 → M.TBA-CV 16:41 → M.CL 16:41 → M.ICU 16:41 → M.2W 07-24 15:41
PROVIDERS: Emergency Medicine; ADMIT Internal Medicine; ATTEND Internal Medicine
PROC: B41FYZZ Fluoroscopy of Right Lower Extremity Arteries using Other Contrast (ICD-10-PCS; principal; 2020-07-23)
PROC: 02C03ZZ Extirpation of Matter from Coronary Artery, One Artery, Percutaneous Approach (ICD-10-PCS; principal; 2020-07-23)
PROC: 027036Z Dilation of Coronary Artery, One Artery with Three Drug-eluting Intraluminal Devices, Percutaneous Approach (ICD-10-PCS; principal; 2020-07-23)
PROC: 4A023N7 Measurement of Cardiac Sampling and Pressure, Left Heart, Percutaneous Approach (ICD-10-PCS; principal; 2020-07-23)
PROC: B211YZZ Fluoroscopy of Multiple Coronary Arteries using Other Contrast (ICD-10-PCS; principal; 2020-07-23)
DX: I21.19 ST elevation (STEMI) myocardial infarction involving other coronary artery of inferior wall (principal); I50.31 Acute diastolic (congestive) heart failure; E11.9 Type 2 diabetes mellitus without complications; E78.5 Hyperlipidemia, unspecified; I11.0 Hypertensive heart disease with heart failure; I25.10 Atherosclerotic heart disease of native coronary artery without angina pectoris; I25.2 Old myocardial infarction; Z87.442 Personal history of urinary calculi; Z95.5 Presence of coronary angioplasty implant and graft; Z98.49 Cataract extraction status, unspecified eye; Z79.899 Other long term (current) drug therapy; Z28.21 Immunization not carried out because of patient refusal

== ENCOUNTER 2020-08-06 09:52 | Inpatient (IN) | payer MEDICARE ==
[2020-08-06] VITALS (13 sets, daily range): BP systolic 104–137; BP diastolic 63–79
[~2020-08-06] VITALS: Ht 175.3 cm; Wt 71.7 kg
[~2020-08-06 09:52] MED LIST changes: +EFFIENT10 MG PO
[2020-08-06 10:20] LABS: ABSOLUTE EOSINOPHILS 0.2 thou/uL (0.0-0.7); ABSOLUTE LYMPHOCYTES 1.2 thou/uL (0.8-5.3); ABSOLUTE MONOCYTES 0.4 thou/uL (0.0-1.2); ABSOLUTE NEUTROPHILS 4.9 thou/uL (1.6-8.1); BASOPHILS 0.5 %; HEMATOCRIT 42.9 % (42.0-52.0); HEMOGLOBIN 14.4 gm/dL (14.0-18.0); LYMPHOCYTES 18.2 %; MCH 30.6 pg (26.0-34.0); MCHC 33.6 g/dL (28.0-37.0); MCV 91.1 fL (80.0-100.0); MONOCYTES 5.6 %; MPV 8.6 fl. (7.2-11.1); NUCLEATED RBCS 0 /100WBC; PLATELET COUNT* 187 thou/uL (150-400); POLYS 72.7 %; RDW-CV 13.9 % (10.5-14.5); WBC 6.7 thou/uL (4.0-11.0)
[2020-08-06 10:27] LABS: CALCIUM 8.8 mg/dL (8.5-10.1); CREATININE 1.1 mg/dL (0.6-1.3); POTASSIUM 4.1 mmol/L (3.5-5.1)
[2020-08-06 10:28] LABS: APTT 22.6 Seconds (25.0-31.3); PROTIME 10.5 Seconds (9.20-11.50)
[2020-08-06 10:38] LABS: ALBUMIN 3.9 g/dL (3.4-5.0); TOTAL BILIRUBIN 0.4 mg/dL (<0.1-1.0); TOTAL PROTEIN 7.3 g/dL (6.4-8.2)
--- NOTE | 2020-08-06 16:35 | EKG ---
[place] [address] ELECTROCARDIOGRAM REPORT Name: GENESISDONNELL Ricketts Room: [place] [address] ADM IN [facility].#: [id number] Admission: 08/06/20 Attend Phys: Vincenzo Shah Discharge: Date of : 46 Date of Service: 08/06/20 0957 Report #: [id number] THIS REPORT FOR: //name// [facility] Test Date: 2020-08-06 Test Time: 09:57:27 Pat Name: DONNELL HURTADO Department: Room: [facility] Gender: M Public Interviewer: parmjit : 1950 Requested By: Amandeep Cardoso Order Number: [id number] MD: Andrew Cespedes Measurements Intervals [place] Rate: 76 P: 32 CO: 188 QRS: -58 QRSD: 134 T: 2 QT: 384 QTc: 432 Interpretive Statements Sinus rhythm Probable left atrial enlargement Right bundle branch block Borderline ST elevation, lateral leads Compared to ECG 07/24/2020 08:03:39 ST (T wave) deviation now present Myocardial infarct finding no longer present Electronically Signed On 08-06-2020 16:35:22 POLITICAL SCIENCE RESEARCH ASSISTANT by Andrew Cespedes [email or web address] <ELECTRONICALLY SIGNED> By: Andrew Cespedes MD, FACC 08/06/20 1635 0957 0957 Andrew Cespedes MD, FACC /EPI
--- NOTE | 2020-08-06 16:49 | CARD ---
[address] [address] CARDIAC CATH REPORT Name: DONNELL HURTADO Room: [address] IN [facility]#: [id number] Admission: 08/06/20 Attend Phys: Andrew Cespedes MD, Discharge: Date of : 48 Report #: [id number] THIS REPORT FOR: cc: Micheline Laurent MD, Lin W. MD ~ Andrew Cespedes MD [facility] APPROVED REPORT Study performed: 08/06/2020 14:26:42 Patient Details Patient Status: ED Room #: The patient is a 70 year-old male Event Personnel Andrew Cespedes Caddie Supervisor, Patience Lopez RN Lead Application Architect, Gemini Mcdaniel RTR Monitor, Binu Cobb Scrub Procedures Performed Art Access - L femoral artery, Left Heart Cath w/or w/o Coronaries LHC , PRATIMA Place w/wo Plasty Single LAD , PTCA Addl Branch DIAG 1 PCIADDL , Hemostasis w/ Angioseal Indication Unstable angina Risk Factors Hypercholesterolemia Previous Procedures/Diagnoses Previous PCI, Previous [place] Admission/Lab Medications/Medications given during procedure Angiomax IV 13.5 ml, Angiomax Drip IV 31 ml per hr, Angiomax IV 3 ml, Effient PO 30 mg Procedure Narrative The patient was brought urgently to the Cardiac Catheterization Laboratory and was prepped and draped in a sterile manner. The left femoral was infiltrated with 2% Lidocaine subcutaneous anesthesia. A [place] 6 FR sheath was inserted into the left femoral artery. Coronary angiography was performed using coronary diagnostic catheters. The right coronary system [place] [address] CARDIAC CATH REPORT Name: DONNELL HURTADO Room: [address]#: [id number] Admission: 08/06/20 Attend Phys: Andrew Cespedes MD, Discharge: Date of : 48 Report #: [id number] a 6F JR4 catheter. The left coronary system was accessed and visualized with a 6F JL4 catheter. The left ventricle was accessed and visualized with a 6F Straight Pigtail catheter. Left ventricular/Aortic Valve gradient assessed via catheter pullback. Pre-demployment femoral angiogram was performed . Closure device was deployed with a 6 Fr Angioseal STS. The patient tolerated the procedure well and there were no complications associated with the procedure. There was no hematoma. Intraoperative Conscious Sedation Sedation start time: 15:14 Case end Time: 16:03 Fentanyl 25 mcg Versed 2 mg Fluoro Time: 14.1 minutes Dose: DAP 165224 cGycm2 1625 mGy Contrast Type and Amount: Visipaque 200 ml Coronary Angiography The patient's coronary anatomy is right dominant. Diagnostic Cath Left Main 0% narrowing LAD 80% proximal stenosis with 40% mid vessel narrowing; there is 50% narrowing at the ostium of the prominent first diagonal branch Circumflex 70% proximal first marginal narrowing Right Coronary Widely patent proximal mid and distal right coronary stents with 30% mid vessel narrowing Left Ventriculography Left Ventriculography was not performed. Hemodynamics The aortic pressure is 101/57 mmHg with a mean of 76 mmHg. The left ventricular pressure is 102/1 mmHg with a mean of mmHg. The left ventricular end diastolic pressure is 9 mmHg. PCI Technique Lesion Anticoagulation was achieved with Angiomax. Patient was preloaded with Angiomax IV 13.5 ml. Percutaneous coronary intervention was performed on the proximal left anterior descending artery segment. The lesion stenosis prior to intervention was 80% with CHRIS 3 flow. A 6F XB LAD 3.5 Guide Catheter was used to engage the lm ostium. A [employer] 180cm Interventional [place] [address] CARDIAC CATH REPORT Name: DONNELL HURTADO Room: [address]#: [id number] Admission: 08/06/20 Attend Phys: Andrew Cespedes MD, Discharge: Date of : 46 Report #: [id number] lesion. BALLOON DILATION A Balloon catheter Trek RX 2.25 X 8 was inserted and inflated up to 8.00atm for 15seconds. Additional Inflation: 12.00atm for 11seconds. STENT DEPLOYMENT A drug-eluting stent Dickson RX Stent 2.25X8mm was inserted and inflated up to 15.00atm for 9seconds. Additional Inflation: 15.00atm for 8seconds. Final angiography reveals 10 % stenosis with CHRIS 3 flow. COMMENTS The PCI to the LAD and diagonal was technically complex by virtue of the bifurcation nature of the disease requiring angioplasty with stenting of the LAD, rewiring of the diagonal, and angioplasty of the diagonal through the LAD stent struts to achieve a satisfactory result. PCI Technique Lesion 2 Percutaneous Coronary Intervention was performed on the first diagnonal branch segment. Patient was preloaded with Angiomax IV 13.5 ml. The lesion stenosis prior to intervention was 80% with CHRIS 3 flow. A 6F XB LAD 3.5 Guide Catheter was used to engage the lm ostium. A [employer] 180cm Interventional Guidewire was used to cross the lesion. Balloon Dilation A Balloon catheter SC Euphora 2.0 x 6 was inserted and inflated up to 6.00atm for 10seconds. Additional Inflation: 12.00atm for 8seconds. Final angiography reveals 20 % stenosis with CHRIS 3 flow. Conclusion 1. Significant coronary artery disease characterized by the following: A 80% proximal LAD stenosis with 40% mid vessel narrowing; there was 50% [place] [address] CARDIAC CATH REPORT Name: DONNELL HURTADO Room: [address] IN [facility]#: [id number] Admission: 08/06/20 Attend Phys: Andrew Cespedes MD, Discharge: Date of : 46 Report #: [id number] B 70% narrowing of the proximal portion of the moderate-sized first marginal branch of the nondominant circumflex C widely patent proximal mid and distal right coronary stents with 30% mid vessel narrowing 2. Normal left-sided hemodynamic study 3. Successful PCI with deployment of a drug-eluting stent in the proximal LAD with 10% residual narrowing and CHRIS-3 flow to the distal vessel 4. Successful PTCA of the ostium of the first diagonal through the LAD stent with 20% residual narrowing following final dilatation and CHRIS-3 flow to the distal vessel Recommendations Cardiac Risk Reduction Program Aggressive Medical Therapy Medications Administered Prasugrel Diagnostic Cath Approved by: Andrew Cespedes MD Date/Time: 08/06/2020 16:45:59 <ELECTRONICALLY SIGNED> By: Andrew Cespedes MD, [facility] 08/06/20 1649 1649Andrew Cespedes MD, FACC /INF
[2020-08-07] VITALS: BP 130/64
[2020-08-07 04:10] LABS: HEMATOCRIT 38.2 % (42.0-52.0); MCH 30.6 pg (26.0-34.0); MCHC 33.9 g/dL (28.0-37.0); MCV 90.2 fL (80.0-100.0); MPV 8.6 fl. (7.2-11.1); RBC 4.23 mil/uL (4.50-6.00); RDW-CV 13.5 % (10.5-14.5); WBC 7.9 thou/uL (4.0-11.0)
[2020-08-07 04:28] LABS: ALBUMIN 3.2 g/dL (3.4-5.0); ALKALINE PHOSPHATASE 41 U/L (46-116); ANION GAP 7 mmol/L (7-16); CALCIUM 8.4 mg/dL (8.5-10.1); CHLORIDE 106 mmol/L (98-107); CHOLESTEROL 114 mg/dL (<200); CO2 29 mmol/L (21-32); CREATININE 0.9 mg/dL (0.6-1.3); GLUCOSE 105 mg/dL (70-99); HDL CHOLESTEROL 43 mg/dL (>40); LDL CHOLESTEROL 54 mg/dL (<100); POTASSIUM 3.5 mmol/L (3.5-5.1); SGOT 21 U/L (15-37); SGPT 30 U/L (30-65); SODIUM 142 mmol/L (136-145); TC:HDL 2.7 Ratio (Not establshd); TOTAL BILIRUBIN 0.3 mg/dL (<0.1-1.0); TOTAL PROTEIN 6.1 g/dL (6.4-8.2); TRIGLYCERIDE 87 mg/dL (<150); TROPONIN-I LEVEL 0.06 ng/mL (<0.06); VLDL 17 mg/dL (<40)
[2020-08-07 04:30] VITALS: BP 111/68
[2020-08-07 04:48] LABS: BUN 13 mg/dL (7-18)
[2020-08-07 04:59] LABS: SERUM ASSESSMENT CLEAR
[2020-08-07 08:00] VITALS: BP 119/63
--- NOTE | 2020-08-07 09:36 | H ---
[place] [address] HISTORY AND PHYSICAL Name: DONNELL HURTADO Room: [address] ADM IN [facility].#: [id number] Admission: 08/06/20 Attend Phys: Andrew Cespedes MD, Discharge: Date of : 46 Report #: [id number] THIS REPORT FOR: cc: Micheline Laurent MD, Lin W. MD ~ Andrew Cespedes MD [facility] DATE OF SERVICE: 08/06/2020 ADMITTING HISTORY AND PHYSICAL HISTORY OF PRESENT ILLNESS: The patient is a very pleasant 70-year-old male who presented 2 weeks ago with acute inferior wall myocardial infarction. I performed acute catheterization with stenting of the right coronary artery. He was also noted to have an 80-90% mid LAD stenosis, which was not approached in the acute setting. He had done well since discharge until last night and today when he noted some chest tightness typical of his ischemic syndrome, but not nearly as severe as that associated with his acute infarct of 2 weeks ago. The patient's risk factors for coronary artery disease include diabetes, hypertension, and hyperlipidemia. RECENT MEDICATIONS: Include glipizide 5 mg b.i.d., carvedilol 6.25 mg b.i.d., atorvastatin 40 mg daily, aspirin 81 mg daily, prasugrel 10 mg daily, p.r.n. sublingual nitroglycerin, acetaminophen, metformin which has been held, and esomeprazole. PAST MEDICAL HISTORY: Remarkable for the aforementioned risk factors for coronary artery disease as well as gastroesophageal reflux disease. SOCIAL HISTORY: The patient is a nonsmoker. PHYSICAL EXAMINATION: GENERAL: Reveals a minimally distressed middle-aged male. VITAL SIGNS: Blood pressure 140/70, pulse rate 72, respirations 18 per minute. NECK: Jugular venous pressure is normal. Carotids 1-2+. CHEST: Clear. CARDIAC: Reveals normal first and second heart sounds without rubs, murmurs, or gallops. ABDOMEN: Soft and nontender. EXTREMITIES: Without edema with intact femoral, pedal and radial pulses with minimal ecchymosis at the perifemoral site of catheterization 2 weeks ago. IMPRESSION: 1. Unstable angina. 2. Coronary artery disease status post recent [place] [address] HISTORY AND PHYSICAL Name: DONNELL HURTADO Room: [address]#: [id number] Admission: 08/06/20 Attend Phys: Andrew Cespedes MD, Discharge: Date of : 46 Report #: [id number] percutaneous coronary intervention of the right coronary artery. 3. Diabetes. 4. Hypertension. 5. Hyperlipidemia. RECOMMENDATIONS: Given the aforementioned clinical scenario with recrudescent chest pain in the context of the aforementioned infarction, known coronary anatomy with the LAD involvement, I would recommend recatheterization with review of the results of the right coronary artery and strong consideration of PCI to the mid LAD. CRITICAL CARE TIME: Thirty-five minutes from 14:08--14:43. <ELECTRONICALLY SIGNED> By: Andrew Cespedes MD, FACC 08/07/20 0936 1444 1501Joamy Cespedes MD, FACC /nt
[2020-08-07 10:20] VITALS: BP 111/68
[2020-08-07 11:12] VITALS: BP 127/74
--- NOTE | 2020-08-07 16:26 | EKG ---
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1950 Requested By: Andrew Cespedes Order Number: [id number] Reading MD: Cory Robb Measurements Intervals [place] Rate: 77 P: 14 [place]: 177 QRS: -34 QRSD: 135 T: -17 QT: 393 QTc: 445 Interpretive Statements Sinus rhythm Right bundle branch block Inferior infarct, age indeterminate Compared to ECG 08/06/2020 09:57:27 Myocardial infarct finding now present ST (T wave) deviation no longer present Electronically Signed On 08-07-2020 16:26:17 TEST ENGINEERING INTERN by Cory Robb [email or web address] <ELECTRONICALLY SIGNED> By: Cory Robb MD, FACC 08/07/20 1626 5 5 Cory Robb MD, FAC /EPI
--- NOTE | 2020-08-18 10:19 | D ---
[address] [address] DISCHARGE SUMMARY Name: DONNELL HURTADO Room: [address] IN ..#: [id number] Admission: 08/06/20 Attend Phys: Andrew Cespedes MD, Discharge: 08/07/20 Date of : 46 Report #: [id number] THIS REPORT FOR: cc: Micheline Laurent MD, Lin W. MD ~ Andrew Cespedes MD [facility] DATE OF SERVICE: 08/07/2020 FINAL DISCHARGE DIAGNOSES: 1. Unstable angina. 2. Coronary artery disease. 3. Status post recent inferior wall myocardial infarction. 4. Status post percutaneous coronary intervention to the left anterior descending on 08/06/2020. 5. Hypertension. 6. Hyperlipidemia. 7. Type 2 diabetes. PROCEDURES: On 08/06/2020 -- left heart catheterization, selective coronary arteriography, percutaneous coronary intervention with deployment of a drug-eluting stent in the mid LAD with angioplasty of the ostium at the first diagonal. The patient is a very pleasant 70-year-old male who presented 2 weeks ago with acute inferior wall ST-segment elevation myocardial infarction. This is in the context of diabetes, hypertension, hyperlipidemia. I performed acute catheterization with intervention in the right coronary artery with deployment of drug-eluting stents in the proximal, mid and distal right coronary artery. He was also noted to have an 80-90% mid LAD stenosis, which was not approached in that acute setting. After discharge, he did well until the day prior to readmission when he noted recurrent chest discomfort, which was of the same character, but less severe than that associated with his acute infarct. He was admitted through the ER in this context with unstable angina. He underwent recatheterization on 08/06/2020, which revealed a widely patent right coronary stents with 80-90% mid LAD stenosis. I performed PCI, deploying one 2.25 x 8 mm Dickson drug-eluting stent in the mid LAD with 10% residual narrowing, dilating the ostium of the first diagonal with 20% residual at that site. The patient did well post-procedurally without chest pain. Troponin was 0.06 on 08/07, an inconsequential increase. Additional lab revealed sodium 142, potassium 3.5, BUN 13, creatinine 0.9, glucose 105. White blood cell count 7900; hemoglobin 13.0; platelets 160,000. [place] [address] DISCHARGE SUMMARY Name: DONNELL HURTADO Room: [address]#: [id number] Admission: 08/06/20 Attend Phys: Andrew Cespedes MD, Discharge: 08/07/20 Date of : 46 Report #: [id number] DISCHARGE MEDICATIONS: He was discharged to home on the following medications: PRN sublingual nitroglycerin, carvedilol 6.25 mg b.i.d., atorvastatin 40 mg at bedtime, p.r.n. acetaminophen, glipizide 5 mg b.i.d., metformin 500 mg b.i.d. to be resumed on 08/09/2020, esomeprazole 20 mg daily, aspirin 81 mg daily, tamsulosin 0.4 mg daily, oxybutynin 5 mg t.i.d. p.r.n. bladder spasm, hydrocodone/acetaminophen 1 every 4 hours as needed, Pyridium 200 mg t.i.d., and prasugrel or Effient 10 mg daily. He is scheduled to return to see our nurse practitioner in 2 weeks and follow up in our office subsequently. DISCHARGE TIME: Thirty-five minutes from 09:35-10:00 on 08/07/2020. <ELECTRONICALLY SIGNED> By: Andrew Cespedes MD, FACC 08/18/20 1019 1001 1044Andrew Cespedes MD, FACC /nt
== END 2020-08-07 12:00 | disposition home or self-care (01) | DRG 247 ==
LOC: M.ERS 09:52 → M.TBA-ER 11:09 → M.2W 11:09
PROVIDERS: Emergency Medicine Emergency Medical Services; ADMIT Internal Medicine; ATTEND Internal Medicine
DX: I25.110 Atherosclerotic heart disease of native coronary artery with unstable angina pectoris (principal); I24.9 Acute ischemic heart disease, unspecified; Z20.828 Contact with and (suspected) exposure to other viral communicable diseases; E11.9 Type 2 diabetes mellitus without complications; I10 Essential (primary) hypertension; E78.5 Hyperlipidemia, unspecified; Z95.5 Presence of coronary angioplasty implant and graft; Z87.442 Personal history of urinary calculi; Z98.49 Cataract extraction status, unspecified eye

== ENCOUNTER 2020-12-27 14:53 | Emergency (ER) | payer OTHER, MEDICARE ==
[~2020-12-27] VITALS: Ht 175.3 cm; Wt 88.5 kg
[2020-12-27] MEDS ORDERED: FLOMAX0.4 MG PO (15:07)
[2020-12-27] MEDS ORDERED: VITAMIN D350 MCG PO (15:07)
[2020-12-27] MEDS ORDERED: FARXIGA5 MG PO (15:08)
[2020-12-27] MEDS ORDERED: NEXIUM 40 MG CA40 M1 PO (15:08)
[2020-12-27 15:15] LABS: ABSOLUTE BASOPHILS 0.1 thou/uL (0.0-0.2); ABSOLUTE EOSINOPHILS 0.2 thou/uL (0.0-0.7); ABSOLUTE LYMPHOCYTES 1.8 thou/uL (0.8-5.3); ABSOLUTE MONOCYTES 0.5 thou/uL (0.0-1.2); ABSOLUTE NEUTROPHILS 5.3 thou/uL (1.6-8.1); BASOPHILS 0.9 %; EOSINOPHILS 2.8 %; HEMATOCRIT 43.4 % (42.0-52.0); HEMOGLOBIN 14.6 gm/dL (14.0-18.0); LYMPHOCYTES 23.1 %; MCH 30.5 pg (26.0-34.0); MCHC 33.7 g/dL (28.0-37.0); MCV 90.6 fL (80.0-100.0); MONOCYTES 6.3 %; MPV 8.6 fl. (7.2-11.1); NUCLEATED RBCS 0 /100WBC; PLATELET COUNT* 166 thou/uL (150-400); POLYS 66.9 %; RDW-CV 14.2 % (10.5-14.5)
[2020-12-27 15:22] LABS: CALCIUM 8.9 mg/dL (8.5-10.1); CREATININE 0.9 mg/dL (0.6-1.3)
[2020-12-27 15:33] LABS: ALBUMIN 4.1 g/dL (3.4-5.0); MAGNESIUM 1.9 mg/dL (1.8-2.4); TOTAL BILIRUBIN 0.5 mg/dL (<0.1-1.0); TOTAL PROTEIN 7.5 g/dL (6.4-8.2)
[2020-12-27 17:31] VITALS: BP 131/76
--- NOTE | 2020-12-29 13:49 | EKG ---
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1950 Requested By: Amandeep Cardoso Order Number: [id number] MD: Andrew Cespedes Measurements Intervals [place] Rate: 80 P: 48 [place]: 188 QRS: 30 QRSD: 136 T: 9 QT: 393 QTc: 454 Interpretive Statements Sinus rhythm Right bundle branch block Inferior infarct, old Lateral leads are also involved Baseline wander in lead(s) II,III,aVF Compared to ECG 08/07/2020 08:16:45 No significant changes Electronically Signed On 12-29-2020 13:49:25 CDT by Andrew Cespedes [email or web address] <ELECTRONICALLY SIGNED> By: Andrew Cespedes MD, [facility] 12/29/20 1349 1458 1458 Andrew Cespedes MD, [facility] /EPI
== END 2020-12-27 17:32 | disposition left against medical advice (07) ==
LOC: M.ERS 14:53
PROVIDERS: Emergency Medicine Emergency Medical Services
DX: R07.89 Other chest pain (principal); E11.9 Type 2 diabetes mellitus without complications; I10 Essential (primary) hypertension; E78.5 Hyperlipidemia, unspecified; Z87.442 Personal history of urinary calculi; Z95.5 Presence of coronary angioplasty implant and graft